=== PATIENT | female | born 1945 | race Caucasian/White ===

== ENCOUNTER 2021-11-06 15:04 | Emergency (ER) | payer MEDICARE, OTHER ==
[2021-11-06 16:35] LABS: BASOPHIL 1.1 % (0-2); HCT 35.5 % (37.0-47.0); HGB 11.7 g/dl (12.5-16.0); LYMPHOCYTE 21.8 % (15-48); MCH 34.8 pg (25.0-31.0); MCV 105.7 fL (78.0-100.0); MONOCYTE 5.2 % (0-12); MPV 12.2 fL (6.0-9.5); NEUTROPHIL 64.5 % (41-80); NRBC 0; PLT 199 K/uL (150-400); RBC 3.36 M/uL (4.20-5.40); RDW 19.2 % (11.5-14.0); WBC 8.5 K/uL (4.0-10.5)
[2021-11-06 16:54] LABS: BUN/CREAT RATIO (CALC) 14.1 RATIO; CREATININE 1.42 mg/dL (0.51-0.95); POTASSIUM 4.1 mmol/L (3.5-5.1)
[2021-11-06 19:26] LABS: FOLIC ACID (SERUM) 16.3 ng/mL (8.6-58.9)
== END 2021-11-06 18:51 | disposition home or self-care (01) ==
LOC: FER 15:04
PROVIDERS: Emergency Medicine
DX: E11.22 Type 2 diabetes mellitus with diabetic chronic kidney disease (principal); I12.9 Hypertensive chronic kidney disease with stage 1 through stage 4 chronic kidney disease, or unspecified chronic kidney disease; N18.9 Chronic kidney disease, unspecified; D63.1 Anemia in chronic kidney disease; Z88.0 Allergy status to penicillin; Z88.2 Allergy status to sulfonamides; Z88.6 Allergy status to analgesic agent; Z91.041 Radiographic dye allergy status
CPT/HCPCS: 36415; 70450; 71046; 80048; 82607; 82746; 84443; 85025